=== PATIENT | female | born 2000 | race African-American/Black ===

== ENCOUNTER 2022-02-10 06:18 | Emergency (ER) | payer OTHER ==
[~2022-02-10] VITALS: Ht 167.6 cm; Wt 71.2 kg
[2022-02-10 06:31] VITALS: BP 144/99
== END 2022-02-10 06:44 | disposition home or self-care (01) ==
LOC: ER 06:22
DX: S31.41XA Laceration without foreign body of vagina and vulva, initial encounter (principal); X58.XXXA Exposure to other specified factors, initial encounter; Y93.89 Activity, other specified; Y92.89 Other specified places as the place of occurrence of the external cause; Y99.8 Other external cause status